=== PATIENT | female | born 2000 | race Two or more races ===

== ENCOUNTER 2024-09-25 10:25 | Outpatient (CLI) | payer OTHER ==
[2024-09-25 12:15] LABS: BASO % 0.4 % (0.1-1.2); EOS # 0.05 (0.04-0.54); EOS % 0.5 % (0.7-7.0); LYMPH # 2.30 (1.18-3.74); LYMPH % 24.9 % (19.3-53.1); MEAN PLATELET VOLUME 10.40 fl (9.4-12.4); MONO # 0.61 (0.24-0.82); MONO % 6.6 % (4.7-12.5); NEUT # 6.21 (1.56-6.13); NEUT % 67.4 % (34.0-71.1); RED CELL DISTRIBUTION WIDTH 20.8 % (11.6-14.4)
[2024-09-25 12:49] LABS: INR 1.0
[2024-09-25 13:16] LABS: ALT/SGPT 28.0 U/L (12-78); AST/SGOT 15.0 U/L (15-37); BILIRUBIN TOTAL 0.32 mg/dL (0.3-1.2); BUN CREA RATIO 19.0 (7.0-25.0); CREATININE SERUM 0.67 mg/dL (0.55-1.02); GFR 107.24; GLOBULINA 4.3 G/DL (2.4-3.5); GLUCOSE FASTING 71.0 mg/dL (65-100); OSMOLALITY SERUM 278.0 MOSM/KG (275-295)
[2024-09-25 13:37] LABS: COL ADP 120.0 SECONDS (56-102); COL EPI 184.0 SECONDS (82-175)
[2024-09-29 05:07] LABS: CA 125 6.6 U/mL (0.0-38.1)
== END 2024-09-25 10:40 | disposition home or self-care (01) ==
LOC: LAB 10:25
PROVIDERS: ATTEND Student in an Organized Health Care Education/Training Program
DX: N80.9 Endometriosis, unspecified (principal); R10.2 Pelvic and perineal pain; D64.9 Anemia, unspecified